=== PATIENT | female | born 1985 | race Caucasian/White ===

== ENCOUNTER → 2017-06-06 | Outpatient (CLI) | payer BC ==
[~2017-06-06] MED LIST: PRENTAB26 PO
== END | disposition home or self-care (01) ==
LOC: C.PAPS 11:49
PROVIDERS: ATTEND Obstetrics & Gynecology
DX: Z01.419 Encounter for gynecological examination (general) (routine) without abnormal findings (principal)

== ENCOUNTER → 2017-08-28 | Outpatient (CLI) | payer BC ==
[~2017-08-28] MED LIST changes: +OPTIRAY 320 IV PRN
--- NOTE | 2017-08-28 11:52 | DIAGNOSTIC IMAGING REPORT ---
SOFT TISS HEAD/NECK-THYROID CLINICAL HISTORY: 31 years-old Female with E07.9 Thyroid [id number]. Acute atypical chest pain. Family history of thyroid nodules. COMPARISON: None available TECHNIQUE: Multiple real time sonographic images of the thyroid were obtained accessing hermosillo scale appearance and color doppler flow. FINDINGS: MEASUREMENTS: Right lobe: 4.3 x 1.3 x 1.5 cm Left lobe: 3.7 x 1.0 x 1.2 cm Isthmus: 0.3 cm PARENCHYMA: The thyroid parenchymal echotexture is homogeneous. NODULES: No discrete nodules are appreciated. IMPRESSION: Unremarkable sonographic appearance of the thyroid without focal nodule identified. The above report was generated using voice recognition software. It may contain grammatical, syntax or spelling errors. Electronically signed by: Henrique Lobo M.D. 08/28/2017 11:50 AM Dictated Date/Time: 08/28/2017 11:48 AM
--- NOTE | 2017-08-28 12:03 | DIAGNOSTIC IMAGING REPORT ---
(CHEST FOR PE) ANGIO WITH CT DOSE: 188.27 mGy.cm HISTORY: 31 years-old Female presents with acute atypical mid chest pain and concern for possible pulmonary embolus TECHNIQUE: Multiple CTA images of the chest were obtained after the intravenous administration of 102 mL Optiray 320. Coronal and sagittal MIPS were obtained from the axial data set and were submitted for review. A dose lowering technique was utilized adhering to the principles of ALARA. COMPARISON: None. FINDINGS: CTA: There is adequate opacification of the pulmonary arteries to the level of the subsegmental branches without convincing evidence of acute pulmonary embolism. Thoracic aorta is normal in course and caliber without dissection or aneurysm. There is mild dilation of the proximal celiac trunk, 8 mm in transverse dimension with apparent mild narrowing of the origin. Heart size is normal. CT CHEST: No dominant thyroid nodule is seen. No pathologically adenopathy by CT size criteria. There is no pneumothorax, pleural effusion or focal airspace consolidation. There is mild dependent bibasilar atelectasis. Central airways are patent. The imaged upper abdominal structures are normal. The osseous structures appear intact. IMPRESSION: 1. No acute intrathoracic abnormality identified, specifically no acute aortic pathology or evidence of pulmonary thromboembolic disease. 2. Narrowing at the origin of the celiac trunk is noted with poststenotic dilation measuring up to 8 mm transversely. Median arcuate ligament syndrome is a differential consideration within the appropriate clinical setting. The above report was generated using voice recognition software. It may contain grammatical, syntax or spelling errors. Electronically signed by: Henrique Lobo M.D. 08/28/2017 12:02 PM Dictated Date/Time: 08/28/2017 11:55 AM
== END | disposition home or self-care (01) ==
LOC: C.ULTR 11:09
PROVIDERS: ATTEND Physician Assistant Medical
DX: E07.9 Disorder of thyroid, unspecified (principal); R07.89 Other chest pain

== ENCOUNTER → 2018-03-15 | Outpatient (CLI) | payer OTHER ==
[~2018-03-15] MED LIST changes: -OPTIRAY 320 IV PRN
== END | disposition home or self-care (01) ==
LOC: C.LABBFT 13:54
PROVIDERS: ATTEND Physician Assistant Medical
DX: Z13.6 Encounter for screening for cardiovascular disorders (principal); E07.9 Disorder of thyroid, unspecified